=== PATIENT | female | born 1990 | race African-American/Black ===

== ENCOUNTER 2022-01-09 10:25 | Emergency (ER) | payer SELFPAY ==
[~2022-01-09] VITALS: Ht 165.1 cm; Wt 60.0 kg
[2022-01-09 10:30] VITALS: BP 170/90
== END 2022-01-09 11:06 | disposition left against medical advice (07) ==
LOC: ER 10:54
DX: Z53.21 Procedure and treatment not carried out due to patient leaving prior to being seen by health care provider (principal)